=== PATIENT | female | born 1960 | race Caucasian/White ===

== ENCOUNTER 2017-04-13 10:18 | Emergency (ER) | payer MEDICARE, MEDICAID ==
[2017-04-13 10:31] VITALS: BMI 28.3
[2017-04-13 10:40] VITALS: RESP 19; O2SAT 98
--- NOTE | 2017-04-13 10:45 | ED PDOC ---
Upper Extremity Pain/Injury Time Seen by Provider: 04/13/17 10:31 Chief Complaint (Nursing): Upper Extremity Problem/Injury History Per: Patient (Right shoulder and right elbow pain x 2 months. Fell with arm outstretched. Has had pain carrying heavy objects and now noticed swelling right shoulder.) Onset/Duration Of Symptoms: Other (2 months) Current Symptoms Are (Timing): Still Present Quality: Aching Severity: Moderate Pain Scale Rating Of: 3 Past Medical History Vital Signs: Last Vital Signs Temp Pulse 86 04/13/17 10:37 Resp 19 04/13/17 10:37 BP Pulse Ox 98 04/13/17 10:37 - Medical History PMH: Anxiety, Depression, Hypercholesterolemia Denies: Diabetes, HTN, Chronic Kidney Disease - Family History Family History: States: Unknown Family Hx, CAD (Mother) - Home Medications Home Medications: Ambulatory Orders Medication Instructions Recorded Gabapentin [Neurontin] 300 mg PO QAM 10/24/14 Gabapentin [Neurontin] 600 mg PO HS 10/24/14 LORazepam [Ativan] 1 mg PO DAILY PRN 10/24/14 Lorazepam [Ativan] 2 mg PO TID 10/24/14 Simvastatin 5 mg PO DAILY 10/24/14 Ciprofloxacin HCl [Cipro] 500 mg PO BID #10 tab 05/22/15 Naproxen [Naprosyn] 500 mg PO Q12H #20 tab 04/13/17 - Allergies Allergies/Adverse Reactions: Allergies Allergy/AdvReac Type Severity Reaction Status Date / Time epinephrine Allergy SHORTNESS Verified 02/25/16 10:14 OF BREATH iodine Allergy SHORTNESS Verified 02/25/16 10:14 OF BREATH shellfish Allergy SHORTNESS Uncoded 02/25/16 10:15 OF BREATH Review of Systems Constitutional: Negative for: Fever Musculoskeletal: Positive for: Shoulder Pain, Arm Pain Neurological: Negative for: Weakness, Numbness Physical Exam - Physical Exam Appears: Positive for: Non-toxic, No Acute Distress Extremity: Positive for: Normal ROM. Negative for: Deformity, Swelling Neurologic/Psych: Positive for: Alert, Oriented. Negative for: Motor/Sensory Deficits - ECG O2 Sat by Pulse Oximetry: 98 Disposition - Clinical Impression Clinical Impression: Shoulder sprain - Patient ED Disposition Is Patient to be Admitted: No Counseled Patient/Family Regarding: Studies Performed, Diagnosis, Need For Followup, Rx Given - Disposition Referrals: Bobby Degroot MD [Staff Provider] - Disposition: Routine/Home Disposition Time: 11:55 Condition: FAIR Prescriptions: Naproxen [Naprosyn] 500 mg PO Q12H #20 tab Instructions: Shoulder Sprain (ED), Elbow Sprain (ED) Forms: [facility] (Khmer)
--- NOTE | 2017-04-13 11:44 | RAD ---
PROCEDURE: Radiographs of the Right Shoulder HISTORY: trauma COMPARISON: No prior. FINDINGS: BONES: Normal. No fracture. JOINTS: There is narrowing of the AC joint associated with osteoarthritic changes. SOFT TISSUES: Normal. OTHER FINDINGS: None. IMPRESSION: No evidence of acute fracture or dislocation. Narrowing of the AC joint and osteoarthritic changes.
[2017-04-13 12:17] VITALS: BP 128/78; PULSE 80; TEMP 97.6
--- NOTE | 2017-04-13 16:48 | RAD ---
PROCEDURE: Radiographs of the right elbow. HISTORY: trauma COMPARISON: No prior. FINDINGS: BONES: Normal. No fracture. JOINTS: Normal. No osteoarthritis. SOFT TISSUES: Normal. JOINT EFFUSION: None. OTHER FINDINGS: None. IMPRESSION: Unremarkable radiographs of the right elbow.
== END 2017-04-13 12:17 | disposition home or self-care (01) ==
LOC: H.ER 10:18
DX: M25.511 Pain in right shoulder (principal); F41.9 Anxiety disorder, unspecified